=== PATIENT | male | born 1965 | race Two or more races ===

== ENCOUNTER 2025-09-11 06:15 | Day surgery (SDC) | payer MEDICAID, SELFPAY ==
--- NOTE | 2025-09-09 07:00 | EKG_ITS ---
[facility] Test Date: 2025-09-09 Pat Name: CARO MORALES Department: Room: - Gender: Male Tight Cooper: MAGGIE : 1965 Requested By: Norris Atkinson Order Number: [id number] Reading MD: Norris Atkinson Measurements Intervals [place] Rate: 76 P: 48 TN: 157 QRS: -70 QRSD: 104 T: 55 QT: 371 QTc: 419 Interpretive Statements SINUS RHYTHM PATTERN CONSISTENT WITH PULMONARY DISEASE INCOMPLETE RIGHT BUNDLE BRANCH BLOCK [90+ ms QRS DURATION, TERMINAL R IN V1/V2, 40+ ms S IN I/aVL/V4/V5/V6] LEFT ANTERIOR FASCICULAR BLOCK [QRS AXIS <= -45, QR IN I, RS IN II] Compared to ECG 12/06/2023 10:43:24 Right ventricular hypertrophy no longer present /store/S0/[id number]/ecg/[id number].pdf
[2025-09-09 09:18] VITALS: BMI 41.0
[2025-09-09 09:54] LABS: Basophils # (Auto) 0.1 Thou/mm3 (0.0-0.2); Basophils % (Auto) 1 % (0-2.5); Eosinophils # (Auto) 0.4 Thou/mm3 (0.0-0.5); Eosinophils % (Auto) 4 % (0-10); Hematocrit 34.3 % (41.0-53.0); Hemoglobin 11.4 g/dL (13.5-16.0); Immature Granulocytes Auto 0.08 Thou/mm3 (0.00-0.00); Lymphocytes # (Auto) 3.0 Thou/mm3 (1.0-4.8); Lymphocytes % (Auto) 33 % (10-50); Mean Corpuscular HGB Conc 33.2 g/dl (31.0-37.0); Mean Corpuscular Hemoglobin 32.1 pg (25.0-35.0); Mean Corpuscular Volume 97 fL (80-100); Monocytes # (Auto) 1.2 Thou/mm3 (0.0-0.8); Monocytes % (Auto) 14 % (0-12); Neutrophils # (Auto) 4.4 Thou/mm3 (1.8-7.7); Neutrophils % (Auto) 48 % (37-80); Nucleated Red Blood Cell # 0.00 Thou/mm3 (0.00-0.00); Nucleated Red Blood Cell % 0 /100 WBC (0); Platelet Count 268 Thou/mm3 (140-440); RDW Standard Deviation 46.4 fL (35.1-43.9); Red Blood Count 3.55 Miln/mm3 (4.50-5.90); White Blood Count 9.1 Thou/mm3 (3.8-10.6)
[2025-09-09 10:05] LABS: INR 1.0 (0.9-1.3); Partial Thromboplastin Time 29.6 Seconds (22.0-36.0); Prothrombin Time 10.6 Seconds (9.0-12.2)
[2025-09-09 10:08] LABS: Alanine Aminotransferase 26 U/L (10-49); Albumin, Serum 4.5 gm/dL (3.5-5.0); Albumin/Globulin Ratio 1.4 (1.2-2.2); Alkaline Phosphatase 78 U/L (46-116); Anion Gap 13 (7-16); Aspartate Amino Transferase 20 U/L (0-34); BUN/Creatinine Ratio 4 Ratio (12-20); Bilirubin,Total 0.2 mg/dL (0.3-1.2); Blood Urea Nitrogen 32 mg/dL (9-23); Calcium 10.0 mg/dL (8.3-10.6); Calcium (Corrected) 10.0 mg/dL (8.5-10.1); Carbon Dioxide 29.3 mMol/L (20.0-31.0); Chloride 95 mMol/L (98-107); Creatinine (Component) 7.2 mg/dL (0.6-1.3); Estimated Creatinine Clearance 14.4 mL/min (>60); Globulin 3.2 gm/dL (2.3-3.5); Glucose 101 mg/dL (74-106); Osmolality,Calculated 280 (275-295); Potassium 4.7 mMol/L (3.4-5.1); Sodium 137 mMol/L (136-145); Total Protein 7.7 gm/dL (5.7-8.2); eGFR 8 See Note
[2025-09-11] VITALS (12 sets, daily range): BP systolic 83–122; BP diastolic 41–73; PULSE 67–76; RESP 12–21; TEMP 36.2–36.9; O2SAT 94–98; BMI 40.1
[2025-09-11 07:17] LABS: Potassium 4.9 mMol/L (3.4-5.1)
[2025-09-11] MEDS: SODIUM CHLORIDE 0.9% 500 ML 500 ML 20 ML IV (07:21)
--- NOTE | 2025-09-11 10:32 | PD.SUROPNT ---
Date of Procedure 09/11/25 Pre Op Diagnosis Symptomatic varicose veins bilateral lower extremities Post Op Diagnosis Same as pre-op diagnosis Procedure Varicose vein excisions bilateral lower extremities through 8 incisions on the right and 46 incisions on the left Findings All marked varicose veins were successfully removed or disrupted Procedure Description With the patient standing in the preop area all varicose veins to be removed were carefully marked with a sharpie pen. The patient was then brought to the operating room and laryngeal mask anesthesia was established. Both lower extremities were then sterilely prepped and draped. A timeout was performed. The varicose veins were removed by making a small skin yessica in the skin then bluntly enlarged with a mosquito clamp and sequentially excising or disrupting the veins. When all marked veins were successfully removed or disrupted hemostasis was obtained and then the limbs were cleaned. Sterile dressings were then applied with gauze Kerlix and an Farshad wrap. Patient woke well from anesthesia was moved recovery in stable condition Anesthesia other (Laryngeal mask anesthesia) Implants Implants comments: None Pathology / specimen Other (Bilateral lower extremity varicose veins) Estimated Blood Loss 100 Condition Stable Disposition PACU Surgeon Norris Devine MD Surgical Staff Operation Date: 09/11/25 09:30 Case Staff Anesthesiologist: Gerson Vincent RN First Assistant: Quiana Rm
--- NOTE | 2025-09-11 10:48 | SUR.PHASEI ---
pt received from OR in recovery bay 4. pt asleep but responds to voice, breathing unlabored on 6l oxymask. v/s stable. pt dressing to bilateral lower extremities cdi. report received from Roderick SOLIMAN and Dr. Vincent.
--- NOTE | 2025-09-11 11:49 | SUR.PHASEII ---
pt able to tolerate oral fluids without difficulty swallowing or nausea/vomiting.
[2025-09-11] MEDS: fentaNYL CIT INJ 50 mCg/ML AMP 2ML 25 MCG IVP (12:05)
--- NOTE | 2025-09-11 12:50 | SUR.PHASEII ---
pt awake and alert, breathing unlabored on room air. v/s stable. pt dressing to bilateral lower extremities cdi. pt able to ambulate to wheelchair with steady gait. d/c instructions given with daughter and in room, all questions answered. pt d/c via wheelchair with all belongings.
== END 2025-09-11 12:50 | disposition home or self-care (01) ==
PROVIDERS: Anesthesiology; PCP Physician Assistant; Referring Provider Surgery Vascular Surgery; Visit Provider Surgery Vascular Surgery
PROC: (CPT 36475; principal; 2025-09-11 09:15)
DX: I83.813 Varicose veins of bilateral lower extremities with pain (principal); I70.213 Atherosclerosis of native arteries of extremities with intermittent claudication, bilateral legs; Z01.810 Encounter for preprocedural cardiovascular examination
CPT/HCPCS: 37799; 37766; 36415; 80053; 84132; 85025; 85610; 85730; 93005; A4217; A4649; J0131; J0690; J1100; J2250; J2405; J2704; J3010; J3490; J7999